=== PATIENT | male | born 1965 | race Caucasian/White ===

== ENCOUNTER 2016-12-14 19:57 | Emergency (ER) | payer MEDICAID ==
[2016-12-14 20:08] VITALS: RESP 16
--- NOTE | 2016-12-14 20:23 | EDPHY ---
H & P Stated Complaint: R elbow pain, swelling x4d; denies injury Time Seen by Provider: 12/14/16 20:23 HPI/ROS: CHIEF COMPLAINT: Right elbow redness and swelling HISTORY OF PRESENT ILLNESS: The patient presents to the ED for evaluation of 4 days of right elbow redness and swelling. The patient denies history of trauma. He denies history of fever. The patient denies history of diabetes. He does have sporadic gout which he takes indomethacin for. The patient has had no history of fall or trauma. The patient denies acute numbness or weakness. The patient denies additional acute complaints. REVIEW OF SYSTEMS: A comprehensive 10 point review of systems is otherwise negative aside from elements mentioned in the history of present illness. Source: Patient Exam Limitations: No limitations - Personal History Current Tetanus/Diphtheria Vaccine: Unsure Current Tetanus Diphtheria and Acellular Pertussis (TDAP): Unsure - Medical/Surgical History Hx Asthma: No Hx Chronic Respiratory Disease: No Hx Diabetes: No Hx Cardiac Disease: No Hx Renal Disease: No Hx Cirrhosis: No Hx Alcoholism: No Hx HIV/AIDS: No Hx Splenectomy or Spleen Trauma: No Other PMH: gout - Social History Smoking Status: Never smoked - Physical Exam Exam: General Appearance: Alert, no distress Respiratory: There are no retractions, lungs are clear to auscultation Cardiovascular: Regular rate and rhythm Gastrointestinal: Abdomen is soft and nontender, no masses, bowel sounds normal Neurological: A&O, normal motor function, normal sensory exam, normal cranial nerves Skin: Minimal erythema surrounding right olecranon bursa Musculoskeletal: Neck is supple nontender Extremities: Swelling noted of the right olecranon bursa Constitutional: Initial Vital Signs Temperature (C) 37.5 C 12/14/16 20:06 Heart Rate 95 12/14/16 20:06 Respiratory Rate 16 12/14/16 20:06 Blood Pressure 140/93 H 12/14/16 20:06 O2 Sat (%) 94 12/14/16 20:06 O2 Delivery Mode Room Air Allergies/Adverse Reactions: No Known Allergies Allergy (Unverified 12/12/10 22:23) Home Medications: Medication Instructions Recorded "Gout Medication" 12/14/16 Cephalexin [Keflex] 500 mg PO QID #28 cap 12/14/16 Hydrocodone/APAP 5/325 [[place] 1 - 2 each PO Q6 PRN #20 tab 12/14/16 5/325] Medical Decision Making Procedures: Procedure: Right olecranon bursa aspiration The patient's swollen olecranon bursa on the right elbow was aspirated under sterile conditions after anesthesia with 1% lidocaine with epinephrine without complication by myself using an 18 gauge needle. A total of 5 mL of straw- colored fluid was removed. The fluid was sent for cell count, crystals and culture. ED Course/Re-evaluation: The patient presents to the ED with olecranon bursitis. There is no clinical evidence of a septic arthritis or abscess. The patient has mild erythematous changes over the bursa. The bursa was aspirated in the ED and sent for culture. The patient will be started on Keflex. The patient is advised to return to the ED for increasing pain, redness, worsening symptoms, fever or other concerns. The patient will contact the ED in 2 days to check the results of the culture. Departure - Departure Disposition: Home, Routine, Self-Care Clinical Impression: Olecranon bursitis Qualifiers: Laterality: right Qualified Code(s): M70.21 - Olecranon bursitis, right elbow Condition: Good Instructions: Elbow Bursitis (ED) Additional Instructions: 1. Please contact the emergency department in 2 days at [phone] to check the results of your aspirate culture 2. Please take antibiotics as directed. 3. Take Ibuprofen or Motrin 600 mg by mouth three times a day. 4. [place] as needed for severe pain. 5. Please follow up with your primary care provider as needed. 6. Please follow up with our on-call orthopedic surgeon, Dr. Isaias Urban, for any persistent pain, swelling or other concerns. Referrals: Medina Verdin, PAC [Primary Care Provider] - As per Instructions Isaias Urban MD [Medical Doctor] - As per Instructions
[2016-12-14] MEDS ORDERED: HYDROCOD/APAP 5/325 PREPACK#6 BTL TAKEHOME ONE (20:45)
[2016-12-14] MEDS ORDERED: CEPHALEXIN 500 MG CAP PO ONE (20:45)
[2016-12-14 21:03] VITALS: BP 138/95; PULSE 99; TEMP 98.4; O2SAT 92
[2016-12-14 21:19] LABS: WBC, SYNOVIAL FLUID 1420 /mm3 (0-150)
== END 2016-12-14 21:02 | disposition home or self-care (01) ==
PROC: 0M933ZZ Drainage of Right Elbow Bursa and Ligament, Percutaneous Approach (ICD-10-PCS; principal; 2016-12-14)
DX: M70.21 Olecranon bursitis, right elbow (principal)

== ENCOUNTER 2017-01-02 21:58 | Emergency (ER) | payer MEDICAID ==
[2017-01-02 22:22] VITALS: RESP 16
--- NOTE | 2017-01-02 22:41 | EDPHY ---
H & P Stated Complaint: R elbow swelling HPI/ROS: HPI CHIEF COMPLAINT: Right elbow swelling HISTORY OF PRESENT ILLNESS: This patient 51-year-old male, no history of diabetes, presents emergency room with right elbow pain and swelling. He was seen here in December 14 for a right elbow infection that turned out to be a septic bursitis. At that time he had an I and D performed. I did review his microbiology of this with a gram staining culture did grow out Staph aureus. It was susceptible to Bactrim. He presents back to the emergency room closed 19 days later and states that it has greatly improved after course of antibiotics. However he tells me still has some mild pain swelling and warmth to it. Requesting another evaluation. He denies fever. Denies new trauma. He does state that he feels like he cannot fully extend his right arm to 180 degrees. Feels like he can get it to about 160 degrees. Of note this patient tells me that he is leaving the country on [place] and would like to see Orthopedics sooner than later. Of note here in the emergency room the patient has a mildly warm right a bursa, no erythema, and his arm does extend to about 160 degrees. Otherwise he is neurovascularly intact. Does have range of motion of his elbow. Here in the ER I offered him multiple options which includes 1. to aspirate his bursa again 2. check blood work, 3. IV antibiotics 4. consult with Orthopedics, however this patient declined any evaluation here in the emergency room specifically has to kind IV establishment, blood work, antibiotics, aspiration. He is okay with consultation with orthopedics for follow-up care. He is requesting another course of antibiotics orally only. I explained the be glad to put him on oral antibiotics however he needs to closely follow up with Orthopedics in the next 24 hours. He understands return to the emergency room if develops any worsening symptoms this includes fever, swelling, pain, redness. He understands this. I have reviewed his microbiology culture did grow out Staph aureus susceptible to Bactrim which I will place him on. 2300: I did consult Dr. Gaming with Orthopedics we did reviewed the case together. He will be glad to see this patient in office tomorrow. The patient is to call their for an appointment. I did explain to the patient given that were not doing any IV blood work, were not aspirating his burst again evaluation is somewhat limited here in the emergency room due to this. He understands this. Past Medical History: No significant medical history Past Surgical History: No significant surgical history Social History: Denies daily use drugs alcohol tobacco products. Family History: Noncontributory ROS REVIEW OF SYSTEMS: A comprehensive 10 point review of systems is otherwise negative aside from elements mentioned in the history of present illness. Exam Constitutional triage nursing summary reviewed, vital signs reviewed, awake/ alert. Eyes normal conjunctivae and sclera, EOMI, PERRLA. HENT normal inspection, atraumatic, moist mucus membranes, no epistaxis, neck supple/ no meningismus, no raccoon eyes. Respiratory clear to auscultation bilaterally, normal breath sounds, no respiratory distress, no wheezing. Cardiovascular rate normal, regular rhythm, no murmur, no edema, distal pulses normal. Gastrointestinal soft, non-tender, no rebound, no guarding, normal bowel sounds, no distension, no pulsatile mass. Genitourinary no CVA tenderness. Musculoskeletal right elbow: Mild warmth, no erythema, no fluctuance, full range of motion, however does not have full extension of the right arm stops at 160 degrees. Distally neurovascular intact good pulse, warm extremity, no fluctuance. The bursa appears indurated and somewhat granulated on external exam. Hard to touch. no midline vertebral tenderness, full range of motion, no calf swelling, no tenderness of extremities, no meningismus, good pulses, neurovascularly intact. Skin pink, warm, & dry, no rash, skin atraumatic. Neurologic awake, alert and oriented x 3, AAOx3, moves all 4 extremities equally, motor intact, sensory intact, CN II-XII intact, normal cerebellar, normal vision, normal speech. Psychiatric normal mood/affect. Heme/Lymph/Immune no lymphadenopathy. Differential Diagnosis: Includes but is not limited to in a particular order, bursitis, infected bursa, septic bursa, chronic inflammation of the bursa. Medical Decision Making: Plan for this patient will start back on oral Bactrim. Patient needs close follow up with Orthopedics. I have already touch base with them. They will be glad to see him tomorrow. Understands return emergency room if he has any worsening symptoms questions or concerns. Re-evaluation: 2301: Will place on Bactrim. He understands return emergency room for worsening symptoms questions concerns he understands call Orthopedics tomorrow for follow-up appointment he should be seen tomorrow. Take Bactrim as prescribed. Source: Patient - Personal History Current Tetanus/Diphtheria Vaccine: Yes Current Tetanus Diphtheria and Acellular Pertussis (TDAP): Yes - Medical/Surgical History Hx Asthma: No Hx Chronic Respiratory Disease: No Hx Diabetes: No Hx Cardiac Disease: No Hx Renal Disease: No Hx Cirrhosis: No Hx Alcoholism: No Hx HIV/AIDS: No Hx Splenectomy or Spleen Trauma: No Other PMH: gout, bursitis - Social History Smoking Status: Never smoked Constitutional: Initial Vital Signs Temperature (C) 37.1 C 01/02/17 22:20 Heart Rate 80 01/02/17 22:20 Respiratory Rate 16 01/02/17 22:20 Blood Pressure 130/88 H 01/02/17 22:20 O2 Sat (%) 92 01/02/17 22:20 O2 Delivery Mode Room Air Allergies/Adverse Reactions: No Known Allergies Allergy (Unverified 01/02/17 22:19) Home Medications: Medication Instructions Recorded "Gout Medication" 12/14/16 Ibuprofen [Motrin (*)] 800 mg PO Q6-8PRN #10 tab 01/02/17 Sulfamet/Tmp Ds Prepack#2 [Bactrim 1 btl TAKEHOME EDNOW #0 btl 01/02/17 Ds Prepack#2] Sulfamethox/Tmp 800/160 mg 1 tab PO BID #14 tab 01/02/17 [Bactrim Ds] Departure - Departure Disposition: Home, Routine, Self-Care Clinical Impression: Septic bursitis of elbow Qualifiers: Laterality: right Qualified Code(s): M71.121 - Other infective bursitis, right elbow Condition: Good Instructions: Elbow Bursitis (ED) Additional Instructions: 1. I believe you have an infection again of your bursa of your elbow. 2. Please start your antibiotics incomplete them as prescribed. 3. Return immediately to the emergency room if you have worsening pain, swelling , redness, fever. 4. Please follow up with Orthopedics tomorrow please call their for an appointment you should be seen tomorrow. Referrals: Medina Verdin PAC [Primary Care Provider] - As per Instructions Hugh Lewis MD [Medical Doctor] - As per Instructions Prescriptions: Ibuprofen [Motrin (*)] 800 mg PO Q6-8PRN #10 tab Sulfamet/Tmp Ds Prepack#2 [Bactrim Ds Prepack#2] 1 btl TAKEHOME EDNOW #0 btl Sulfamethox/Tmp 800/160 mg [Bactrim Ds] 1 tab PO BID #14 tab
[2017-01-02] MEDS ORDERED: IBUPROFEN 200 MG TAB PO ONE (23:05)
[2017-01-02] MEDS ORDERED: SULFAMET/TMP DS PREPACK#2 BTL TAKEHOME ONE (23:08)
[2017-01-02] MEDS ORDERED: SULFAMETHOX/TMP 800/160 MG 1 TAB PO ONE (23:08)
[2017-01-02 23:17] VITALS: BP 133/82; PULSE 75; TEMP 98.6; O2SAT 96
== END 2017-01-02 23:17 | disposition home or self-care (01) ==
DX: M71.121 Other infective bursitis, right elbow (principal)